=== PATIENT | male | born 1950 | race Caucasian/White ===

== ENCOUNTER 2017-09-30 05:48 | Day surgery (SDC) | payer OTHER, BC ==
[2017-09-30] MEDS ORDERED: MIDAZOLAM 1 MG/ML 2 ML INJ (07:48)
[2017-09-30] MEDS ORDERED: FENTAnyl 50 MCG/ML VIAL (07:48)
== END 2017-09-30 14:33 | disposition home or self-care (01) ==
LOC: GIL 05:48
DX: K29.50 Unspecified chronic gastritis without bleeding (principal); K21.9 Gastro-esophageal reflux disease without esophagitis; I10 Essential (primary) hypertension; E11.9 Type 2 diabetes mellitus without complications
CPT/HCPCS: 43239; 82962; 88305; 88312

== ENCOUNTER 2017-10-31 06:00 | Day surgery (SDC) | payer OTHER, BC ==
[2017-10-31] MEDS: SOD CHLORIDE 0.9% 1,000 ML IV (06:00)
[2017-10-31] MEDS: CEFAZOLIN 2 GM/50 ML (PMX) 50 ML IVPB (06:00)
[2017-10-31] MEDS ORDERED: CEFAZOLIN 1 GM INJ (07:00)
[2017-10-31] MEDS: BUPIVACAINE 0.25% (MPF) 30 ML INJ (07:43)
[2017-10-31] MEDS ORDERED: METOCLOPRAMIDE 10 MG INJ IV (08:00)
[2017-10-31] MEDS ORDERED: MEPERIDINE 25 MG INJ IV (08:00)
[2017-10-31] MEDS ORDERED: FENTAnyl 50 MCG/ML VIAL IV ×2 (08:00)
[2017-10-31] MEDS ORDERED: ONDANSETRON 4 MG INJ IV (08:00)
[2017-10-31] MEDS ORDERED: HYDROmorphONE 1 MG/5 ML IV SYRINGE IV ×2 (08:00)
[2017-10-31] MEDS ORDERED: DIPHENHYDRAMINE 50 MG INJ IV (08:00)
[2017-10-31] MEDS ORDERED: FENTAnyl 50 MCG/ML VIAL (08:15)
[2017-10-31] MEDS: LIDOCAINE 2% (MDV) 20 ML INJ (08:34)
[2017-10-31] MEDS: BUPIVACAINE 0.5% (SDV) 30 ML INJ (08:34)
[2017-10-31] MEDS: IBUPROFEN 800 MG TAB PO (09:54)
== END 2017-10-31 10:17 | disposition home or self-care (01) ==
LOC: SDS 06:00
DX: L72.0 Epidermal cyst (principal); E78.5 Hyperlipidemia, unspecified; E78.2 Mixed hyperlipidemia; I10 Essential (primary) hypertension; I25.10 Atherosclerotic heart disease of native coronary artery without angina pectoris; R94.31 Abnormal electrocardiogram [ECG] [EKG]
CPT/HCPCS: 14021; 82962; 88307

== ENCOUNTER 2017-11-09 06:31 | Emergency (ER) | payer OTHER | END 2017-11-09 08:10 | disposition home or self-care (01) | LOC: FTE 06:31 | DX: Z48.01 Encounter for change or removal of surgical wound dressing (principal); E11.9 Type 2 diabetes mellitus without complications; Z79.4 Long term (current) use of insulin; Z79.82 Long term (current) use of aspirin | CPT/HCPCS: 99281 ==